=== PATIENT | female | born 1965 ===

== ENCOUNTER 2017-11-26 11:30 | Emergency (ER) | payer MEDICAID ==
[2017-11-26 11:30] VITALS: BMI 30.2
[2017-11-26] MEDS ORDERED: Oxycodone/Acetaminophen 5/325 mg Tab PO STA (12:00)
[2017-11-26] MEDS ORDERED: Lidocaine 5% Patch TD SCH (12:00)
--- NOTE | 2017-11-26 12:07 | ED PDOC ---
Arrival/HPI - General Historian: Patient <Angelo Wood - Last Filed: 11/26/17 13:16> <Orestes St - Last Filed: 11/26/17 17:01> - General Chief Complaint: Back Pain Time Seen by Provider: 11/26/17 11:56 - History of Present Illness Narrative History of Present Illness (Text): 11/26/17 12:04 52 y/o female, pmh including chronic sciatica pain, nkda, post menopausal, c/o sciatica pain started again yesterday with no new injury or fall. Pt. stated that she was sitting on the hardwood bench yesterday all day, been having pain, took motrin at home with limited relief, rt. lower back radiating to the RLE, no numbness or tingling, no urinary or bowel incontinence or retention, no rash , no night sweat, no other medical or psychological complaints. (Angelo Wood) Past Medical History - Provider Review Nursing Documentation Reviewed: Yes - Infectious Disease Hx of Infectious Diseases: None - Tetanus Immunization Tetanus Immunization: Unknown - Cardiac Hx Cardiac Disorders: No - Pulmonary Hx Respiratory Disorders: No - Neurological Hx Neurological Disorder: No - HEENT Hx HEENT Disorder: No - Renal Hx Renal Disorder: No - Endocrine/Metabolic Hx Endocrine Disorders: No - Hematological/Oncological Hx Cancer: Yes (Uterus and cervical) - Integumentary Hx Dermatological Disorder: No - Musculoskeletal/Rheumatological Hx Arthritis: Yes Hx Rheumatoid Arthritis: Yes Other/Comment: sciatica. Tendonitis b/l elbows - Gastrointestinal Hx Gastrointestinal Disorders: No - Genitourinary/Gynecological Hx Genitourinary Disorders: No - Psychiatric Hx Psychophysiologic Disorder: No Hx Substance Use: No - Past Surgical History Past Surgical History: No Previous - Surgical History Hx Hysterectomy: Yes - Anesthesia Hx Anesthesia: No - Suicidal Assessment Feels Threatened In Home Enviroment: No <Angelo Wood - Last Filed: 11/26/17 13:16> Family/Social History - Physician Review Nursing Documentation Reviewed: Yes Family/Social History: Unknown Family HX Smoking Status: Never Smoked Hx Alcohol Use: No Hx Substance Use: No Hx Substance Use Treatment: No <Angelo Wood - Last Filed: 11/26/17 13:16> Allergies/Home Meds <Angelo Wood - Last Filed: 11/26/17 13:16> <Orestes St - Last Filed: 11/26/17 17:01> Allergies/Adverse Reactions: Allergies No Known Allergies Allergy (Verified 11/26/17 11:49) Review of Systems - Review of Systems Constitutional: absent: Fatigue, Fevers Eyes: absent: Vision Changes ENT: absent: Hearing Changes Respiratory: absent: SOB, Cough Cardiovascular: absent: Chest Pain Gastrointestinal: absent: Abdominal Pain, Nausea, Vomiting Musculoskeletal: Back Pain. absent: Arthralgias, Neck Pain Skin: absent: Rash, Pruritis Psychiatric: absent: Anxiety, Depression, Suicidal Ideation <Angelo Wood - Last Filed: 11/26/17 13:16> Physical Exam Vital Signs Reviewed: Yes Temperature: Afebrile Blood Pressure: Normal Pulse: Regular Respiratory Rate: Normal Appearance: Positive for: Well-Appearing, Non-Toxic, Comfortable Pain Distress: Moderate Mental Status: Positive for: Alert and Oriented X 3 - Systems Exam Head: Present: Atraumatic, Normocephalic Pupils: Present: PERRL Extroacular Muscles: Present: EOMI Conjunctiva: Present: Normal Mouth: Present: Moist Mucous Membranes Neck: Present: Normal Range of Motion Respiratory/Chest: Present: Clear to Auscultation, Good Air Exchange. No: Respiratory Distress, Accessory Muscle Use Cardiovascular: Present: Regular Rate and Rhythm, Normal S1, S2. No: Murmurs Abdomen: No: Tenderness, Distention, Peritoneal Signs, Rebound, Guarding Back: Present: Normal Inspection. No: CVA Tenderness, Midline Tenderness, Paraspinal Tenderness, Pain with Leg Raise, Decubitus Ulcer Upper Extremity: Present: Normal Inspection. No: Cyanosis, Edema Lower Extremity: Present: Normal Inspection, NORMAL PULSES, Neurovascularly Intact, Capillary Refill < 2 s. No: Edema, CALF TENDERNESS, Duane's Sign, Tenderness, Swelling Neurological: Present: GCS=15, CN II-XII Intact, Speech Normal, Motor Func Grossly Intact, Gait Normal, Memory Normal Skin: Present: Warm, Dry, Normal Color. No: Rashes Psychiatric: Present: Alert, Oriented x 3, Normal Insight, Normal Concentration <Angelo Wood - Last Filed: 11/26/17 13:16> Vital Signs Temp Pulse Resp BP Pulse Ox 11/26/17 13:24 98.1 F 71 17 122/74 99 11/26/17 11:51 98.3 F 79 18 120/69 100 Medical Decision Making <Angelo Wood - Last Filed: 11/26/17 13:16> <Orestes St - Last Filed: 11/26/17 17:01> ED Course and Treatment: 11/26/17 12:06 -Percocet/lidoderm -Case discussed with Dr. St and agreed on the dispo/treatment. -I reviewed the [facility] report, patient has no more narcotic and no signs of drug abuse, limited relief with the nsaid and tylenol at home, will give 3 days of percocet with pmd follow up. 11/26/17 13:16 -Pain significantly decreased and feeling much better, request to be discharged home, will discharge home. -Discharge home with percocet, lidoderm patch, naproxen for mild to moderate pain, follow up with your own pmd and pain management within 2 days, return to the ER for any new or worsening signs or symptoms. (Angelo Wood) - Medication Orders Current Medication Orders: Discontinued Medications Lidocaine (Lidoderm) 1 ea TD DAILY HAN Last Admin: 11/26/17 12:10 Dose: 1 ea MAR Transdermal Patch Site Document 11/26/17 12:10 [facility] (Rec: 11/26/17 12:10 [facility] [id number]) Transdermal Patch Site Transdermal Patch Site Right Buttock Oxycodone/Acetaminophen (Percocet 5/325 Mg Tab) 1 tab PO STAT STA Stop: 11/26/17 12:01 Last Admin: 11/26/17 12:10 Dose: 1 tab MAR Pain Assessment Document 11/26/17 12:10 [facility] (Rec: 11/26/17 12:11 [facility] [id number]) Pain Reassessment Is this a pain reassessment? No Sleep Is patient sleeping during reassessment? No Presence of Pain Presence of Pain Yes Pain Scale Used Pain Scale Used Numeric Location Pain Location Body Site Back Description Intensity of Pain at present 10 - PA / WALL ATTENDANT / Resident Statement / has reviewed & agrees with the documentation as recorded. <Angelo Wood - Last Filed: 11/26/17 13:16> - PA / WALL ATTENDANT / Resident Statement / has reviewed & agrees with the documentation as recorded. <Orestes St - Last Filed: 11/26/17 17:01> Disposition/Present on Arrival - Present on Arrival Any Indicators Present on Arrival: No History of DVT/PE: No History of Uncontrolled Diabetes: No Urinary Catheter: No History of Decub. Ulcer: No History Surgical Site Infection Following: None - Disposition Have Diagnosis and Disposition been Completed?: Yes Disposition Time: 12:07 Patient Plan: Discharge <Angelo Wood - Last Filed: 11/26/17 13:16> <Orestes St - Last Filed: 11/26/17 17:01> - Disposition Diagnosis: Sciatica Disposition: HOME/ ROUTINE Condition: IMPROVED Discharge Instructions (ExitCare): Sciatica Additional Instructions: -Discharge home with percocet, lidoderm patch, naproxen for mild to moderate pain, follow up with your own pmd and pain management within 2 days, return to the ER for any new or worsening signs or symptoms. Prescriptions: Lidocaine 5% [Lidoderm] 1 patch TP DAILY PRN #14 patch PRN Reason: Other oxyCODONE/Acetaminophen [Percocet 5/325 mg Tab] 1 tab PO QID PRN #12 tab PRN Reason: Pain, Severe (8-10) Referrals: [facility] [place] [Outside] - Follow up with primary Boyd De Oliveira MD [Staff Provider] - Follow up with primary Forms: WORK NOTE
[2017-11-26 13:24] VITALS: BP 122/74; PULSE 71; RESP 17; TEMP 98.1; O2SAT 99
== END 2017-11-26 13:25 | disposition home or self-care (01) ==
LOC: ED 11:30
DX: M54.30 Sciatica, unspecified side (principal)

== ENCOUNTER 2018-08-24 13:21 | Outpatient (CLI) | payer MEDICAID | END 2018-08-24 13:22 | disposition home or self-care (01) | LOC: RAD 13:21 ==